=== PATIENT | female | born 1935 | race Caucasian/White ===

== ENCOUNTER → 2017-04-19 | Outpatient (CLI) | payer MEDICARE, OTHER ==
[~2017-04-19] MED LIST: CHEWABLE ASPIRI81 MG PO; LASIX40 MG PO; METOLAZONE 2.52.5 MG PO; PLAVIX75 MG PO; PRAVASTATIN 40M40 MG PO; TOPROL XL 25MG25 MG PO
[2017-04-19 12:01] LABS: LYMPH % 11.7 % (10-50.0)
[2017-04-19 12:06] LABS: HEMOGLOBIN 15.1 g/dL (12.2-16.2)
[2017-04-19 12:27] LABS: BUN 39 mg/dL (7-18)
[2017-04-19 12:28] LABS: GFR (ESTIMATED) 27 ML/MIN (59-)
== END ==
LOC: LAB 11:37
PROVIDERS: Internal Medicine Adolescent Medicine
DX: E78.5 Hyperlipidemia, unspecified (principal); M10.9 Gout, unspecified

== ENCOUNTER → 2017-06-30 | Outpatient (CLI) | payer MEDICARE, OTHER ==
[2017-06-30 10:51] LABS: HEMOGLOBIN 14.5 g/dL (12.2-16.2); LYMPH # 1.1 K/mm3 (0.7-4.5); LYMPH % 11.9 % (10-50.0)
[2017-06-30 12:51] LABS: BUN 30 mg/dL (7-18)
[2017-06-30 12:55] LABS: GFR (ESTIMATED) 29 ML/MIN (59-)
== END ==
LOC: LAB 10:28
PROVIDERS: Internal Medicine Adolescent Medicine
DX: Z86.2 Personal history of diseases of the blood and blood-forming organs and certain disorders involving the immune mechanism (principal); E78.5 Hyperlipidemia, unspecified; M10.9 Gout, unspecified